=== PATIENT | female | born 1965 | race American Indian/Alaskan Native ===

== ENCOUNTER 2016-04-28 12:35 | Emergency (ER) | payer MEDICAID ==
[2016-04-28 13:35] VITALS: BP 143/90
--- NOTE | 2016-04-28 13:50 | Emergency Department Report ---
Chief Complaint: Abdominal Pain Stated Complaint: ABD PAIN Time Seen by Provider: 04/28/16 13:47 - HPI History of Present Illness: Patient is a 50 y/o female who presents due to abdominal pain, vomiting and diarrhea x 1 day. Patient states that the symptoms started last night after eating chicken. Patient denies any fever or chills. Patient denies any bloody diarrhea. She denies any recent traveling - ROS Review of Systems: no fever, no chills - Exam Vital Signs: Vital Signs 04/28/16 13:32 Temperature 98.3 F Pulse Rate 103 H Respiratory 18 Rate Blood Pressure 143/90 O2 Sat by Pulse 100 Oximetry Physical Exam: generalized tenderness of abd MSE screening note: Focused history and physical exam performed. Due to findings the following was ordered:abd protocol ED Disposition for MSE Condition: Stable Instructions: Abdominal Pain (ED)
[2016-04-28 14:53] LABS: Alanine Aminotransferase 12 units/L (7-56); Albumin/Globulin Ratio 1.3 %; Alkaline Phosphatase 100 units/L (35-129); Amylase 95 units/L (27-131); Anion Gap 17 mmol/L; Bilirubin,Total 0.3 mg/dL (0.1-1.2); Blood Urea Nitrogen 9 mg/dL (7-17); Calcium 9.1 mg/dL (8.4-10.2); Carbon Dioxide 28 mmol/L (22-30); Chloride 99.5 mmol/L (98-107); Glucose 94 mg/dL (65-100); Lipase 23 units/L (13-60); Potassium 3.7 mmol/L (3.6-5.0); Sodium 141 mmol/L (137-145); Total Protein 7.2 g/dL (6.3-8.2)
[2016-04-28 14:55] LABS: Bilirubin,Direct < 0.2 mg/dL (0-0.2)
[2016-04-28 15:02] LABS: Basophils % (Auto) 0.4 % (0.0-1.8); Eosinophils % (Auto) 1.1 % (0.0-4.3); Hematocrit 37.5 % (30.3-42.9); Hemoglobin 11.7 gm/dl (10.1-14.3); Mean Corpuscular HGB Conc 31 % (30-34); Mean Corpuscular Volume 70 fl (79-97); Platelet Count 295 K/mm3 (140-440); Red Blood Count 5.32 M/mm3 (3.65-5.03); Red Cell Distribution Width 14.9 % (13.2-15.2); White Blood Count 5.2 K/mm3 (4.5-11.0)
[2016-04-28 15:06] LABS: Mean Corpuscular Hemoglobin 22 pg (28-32)
[2016-04-28 16:03] LABS: Bilirubin,Urine NEG (Negative); Blood,Urine NEG (Negative); Ketones,Urine NEG (Negative); Leukocyte Esterase,Urine NEG (Negative); Mucus,Urine FEW /HPF; Nitrite,Urine NEG (Negative); Protein,Urine <15 mg/dL mg/dL (Negative); Urobilinogen,Urine < 2.0 mg/dL (<2.0); WBC,Urine < 1.0 /HPF (0.0-6.0)
--- NOTE | 2016-04-28 20:11 | ED Elopement Review ---
ED Pt Elopement review - Results review Lab results: Laboratory Tests 04/28/16 04/28/16 04/28/16 14:24 14:24 15:00 WBC 5.2 RBC 5.32 H Hgb 11.7 Hct 37.5 MCV 70 L MCH 22 L MCHC 31 RDW 14.9 Plt Count 295 Lymph % (Auto) 50.8 H [place] % (Auto) 7.5 H Eos % (Auto) 1.1 Baso % (Auto) 0.4 Lymph # 2.6 [place] # 0.4 Eos # 0.1 Baso # 0.0 Seg Neutrophils % 40.2 Seg Neutrophils # 2.1 Sodium 141 Potassium 3.7 Chloride 99.5 Carbon Dioxide 28 Anion Gap 17 BUN 9 Creatinine 0.6 L Estimated GFR > 60 BUN/Creatinine Ratio 15.00 Glucose 94 Calcium 9.1 Total Bilirubin 0.3 Direct Bilirubin < 0.2 AST 15 ALT 12 Alkaline Phosphatase 100 Total Protein 7.2 Albumin 4.0 Albumin/Globulin Ratio 1.3 Amylase 95 Lipase 23 Urine Color Yellow Urine Turbidity Clear Urine pH 6.0 Ur Specific [place] 1.018 Urine Protein <15 mg/dl Urine Glucose (UA) Neg Urine Ketones Neg Urine Blood Neg Urine Nitrite Neg Urine Bilirubin Neg Urine Urobilinogen < 2.0 Ur Leukocyte Esterase Neg Urine WBC (Auto) < 1.0 Urine RBC (Auto) 1.0 U Epithel Cells (Auto) 1.0 Urine Mucus Few Urine HCG, Qual Negative - Call Back decision Pt Call Back Decision: No action required
== END 2016-04-28 14:25 | disposition left against medical advice (07) ==
LOC: ED 12:35
DX: R10.9 Unspecified abdominal pain (principal); R11.10 Vomiting, unspecified; R19.7 Diarrhea, unspecified; Z53.21 Procedure and treatment not carried out due to patient leaving prior to being seen by health care provider
CPT/HCPCS: 36415; 80048; 80074; 81001; 81025; 82150; 83690; 85025

== ENCOUNTER 2018-05-17 09:36 | Outpatient (CLI) | payer OTHER ==
--- NOTE | 2018-05-18 09:31 | Mammography Report ---
BILATERAL DIGITAL SCREENING MAMMOGRAM with CAD: 05/17/18 09:36:00 CLINICAL: Routine screening. COMPARISON:02/02/17 FINDINGS: The breasts are almost entirely fatty. No mass, architectural distortion or suspicious calcifications. IMPRESSION: No mammographic evidence of malignancy. BI-RADS CATEGORY: 1 - - Negative RECOMMENDATION: Routine mammographic screening in one year. COMMENT: Patient follow-up letters are generated by our [employer] application.
== END 2018-05-17 09:37 | disposition home or self-care (01) ==
LOC: MAMMO 09:36
DX: Z12.31 Encounter for screening mammogram for malignant neoplasm of breast (principal); I10 Essential (primary) hypertension
CPT/HCPCS: 77067